=== PATIENT | female | born 1985 | race Two or more races ===

== ENCOUNTER 2019-02-27 17:18 | Emergency (ER) | payer BC, OTHER ==
[~2019-02-27] VITALS: Ht 160 cm; Wt 72.6 kg
[2019-02-27 17:30] VITALS: BP 119/73
== END 2019-02-27 19:35 | disposition left against medical advice (07) ==
LOC: ER 17:18
DX: T42.4X1A Poisoning by benzodiazepines, accidental (unintentional), initial encounter (principal); Z53.21 Procedure and treatment not carried out due to patient leaving prior to being seen by health care provider; Y92.89 Other specified places as the place of occurrence of the external cause